=== PATIENT | female | born 1970 | race Caucasian/White ===

== ENCOUNTER 2021-01-20 08:31 | Inpatient (IN) ==
[2021-01-20] MEDS: *HR* HYDROcodone/Acet 5/325 mg TABLET PO PRN ×2 (13:43→20:58)
[2021-01-20 13:56] LABS: Basophils # 0.1 K/mcL (0.0-0.2); Basophils % 0.8 %; Eosinophils # 0.1 K/mcL (0.0-0.6); Eosinophils % 1.7 %; Hematocrit 36.1 % (35.3-44.9); Hemoglobin 11.6 g/dL (11.5-15.4); Immature Granulocytes % 0.8 % (0-4); Lymphocytes # 1.3 K/mcL (0.6-4.6); Mean Corpuscular HGB Conc 32.1 g/dL (31.6-35.5); Mean Platelet Volume 8.1 fL (9.4-12.4); Monocytes # 0.5 K/mcL (0.0-1.3); Neutrophils # 5.8 K/mcL (1.6-8.9); Platelet Count 383 K/mcL (140-400); Red Blood Count 4.15 M/mcL (3.82-4.97); Red Cell Distribution Width 15.7 % (11.5-14.5); Segmented Neutrophils % 73.7 %; White Blood Count 7.8 K/mcL (4.3-11.1)
[2021-01-20 14:34] LABS: Alanine Aminotransferase 16 Units/L (7-52); Albumin 3.8 g/dL (3.5-5.7); Alkaline Phosphatase 93 Units/L (34-104); Aspartate Amino Transferase 12 Units/L (13-39); BUN/Creatinine Ratio 39 (6-26); Bilirubin,Total 0.3 mg/dL (0.3-1.0); Blood Urea Nitrogen 24 mg/dL (6-20); Calcium 9.6 mg/dL (8.6-10.3); Carbon Dioxide 28 mEq/L (23-29); Chloride 99 mEq/L (98-107); Globulin 3.8 g/dL (2.4-3.5); Glucose 126 mg/dL (70-105); Osmolality,Calculated 288 (280-300); Potassium 3.2 mEq/L (3.5-5.1); Sodium 136 mEq/L (136-145); Total Protein 7.6 g/dL (6.4-8.9); eGFR For African Americans > 60 (> 60); eGFR For Non-African Americans > 60 (> 60)
[2021-01-20] MEDS ORDERED: Potassium Chloride Elixir 20 MEQ/15 ML UDC PO ONE (14:44)
[2021-01-20] MEDS: *HR* Heparin 5,000 UNIT/ML VIAL SQ SCH (17:52)
[2021-01-20] MEDS: clonazePAM 0.5 MG TABLET PO SCH (20:58)
[2021-01-20] MEDS: Pregabalin 75 MG CAPSULE PO SCH (20:58)
[2021-01-21] MEDS: *HR* Heparin 5,000 UNIT/ML VIAL SQ SCH (05:37)
[2021-01-21] MEDS ORDERED: ceFAZolin 2,000 MG in 0.9 % Sodium Chloride 100 ML IVPB ONE (08:00)
[2021-01-21] MEDS: clonazePAM 0.5 MG TABLET PO SCH (08:08)
[2021-01-21] MEDS: Pregabalin 75 MG CAPSULE PO SCH ×3 (08:08→19:39)
[2021-01-21] MEDS: *HR* HYDROcodone/Acet 5/325 mg TABLET PO PRN ×2 (08:09→18:10)
[2021-01-21] MEDS ORDERED: Loratadine 10 MG TABLET PO SCH (09:00)
[2021-01-21] MEDS ORDERED: Losartan/HCTZ 50-12.5 TABLET PO SCH (09:00)
[2021-01-21] MEDS ORDERED: BuPROPion XL (24 HR) 150 MG TABLET PO SCH (09:00)
[2021-01-21] MEDS ORDERED: *HR* FentaNYL (PF) 100 MCG/2 ML VIAL ONE (10:11)
[2021-01-21] MEDS ORDERED: Ondansetron 4 MG/2 ML VIAL ONE (10:11)
[2021-01-21] MEDS ORDERED: *HR* Succinylcholine 200 MG/10 ML VIAL IVP ONE (10:11)
[2021-01-21] MEDS ORDERED: *HR* Propofol 200 MG/20 ML VIAL IVP ONE ×2 (10:11→10:16)
[2021-01-21] MEDS ORDERED: Lidocaine -MPF 2% 5 ML VIAL ONE (10:11)
[2021-01-21] MEDS ORDERED: Vancomycin 1,000 MG VIAL ONE (11:20)
[2021-01-21] MEDS ORDERED: Lidocaine HCL 4 ML Topical Solution (Laryng-O-Jet Kit Sterile Pak) TP ONE (11:25)
[2021-01-21] MEDS ORDERED: Ondansetron 4 MG/2 ML VIAL IVP PRN ×3 (12:11→14:50)
[2021-01-21] MEDS ORDERED: *HR* HYDROmorphone PF 0.5 MG/0.5 ML SYRINGE IVP PRN (12:11)
[2021-01-21] MEDS ORDERED: Ketorolac 30 MG/ML VIAL ONE (12:33)
[2021-01-21] MEDS ORDERED: *HR* HYDROMORPHONE 2 MG/ML VIAL ONE (12:38)
[2021-01-21] MEDS ORDERED: *HR* OxyCODONE Immed Rel 5 MG TABLET PO PRN (14:45)
[2021-01-21] MEDS ORDERED: Acetaminophen 325 MG TABLET PO PRN (14:50)
[2021-01-21] MEDS ORDERED: Naloxone 0.4 MG/ML INJ IVP PRN (14:50)
[2021-01-21] MEDS: CeFAZolin 2 GM/120 ML BAG IVPB SCH ×2 (19:11→23:51)
[2021-01-21] MEDS: *HR* OxyCODONE Immed Rel 5 MG TABLET PO PRN (21:33)
[2021-01-22] MEDS: *HR* OxyCODONE Immed Rel 5 MG TABLET PO PRN (02:49)
[2021-01-22 07:59] VITALS: BP 124/76; PULSE 64; TEMP 97.7; O2SAT 99
[2021-01-22] MEDS: Pregabalin 75 MG CAPSULE PO SCH (08:46)
[2021-01-22] MEDS: *HR* HYDROcodone/Acet 5/325 mg TABLET PO PRN (08:50)
[2021-01-22] MEDS ORDERED: BuPROPion XL (24 HR) 150 MG TABLET PO SCH (09:00)
[2021-01-22] MEDS ORDERED: FLU Vac QV 21-22 (6Month+)/PF 0.5 ML SYRINGE IM ONE (09:32)
[2021-01-25] MEDS ORDERED: Cholecalciferol (D-3) 1,000 UNIT (25MCG) TABLET PO SCH (09:00)
== END 2021-01-22 10:18 | disposition home or self-care (01) | DRG 857 ==
LOC: 4WAOSI
PROVIDERS: ADMIT Orthopaedic Surgery Orthopaedic Surgery of the Spine; ATTEND Orthopaedic Surgery Orthopaedic Surgery of the Spine

== ENCOUNTER 2021-04-27 08:39 | Observation (INO) ==
[2021-04-27 13:24] LABS: Basophils # 0.1 K/mcL (0.0-0.2); Basophils % 0.8 %; Eosinophils # 0.2 K/mcL (0.0-0.6); Eosinophils % 3.1 %; Hematocrit 37.6 % (35.3-44.9); Hemoglobin 11.9 g/dL (11.5-15.4); Immature Granulocytes % 0.7 % (0-4); Lymphocytes # 1.5 K/mcL (0.6-4.6); Mean Corpuscular HGB Conc 31.6 g/dL (31.6-35.5); Mean Corpuscular Hemoglobin 28.1 pg (28.0-33.3); Mean Corpuscular Volume 88.9 fL (83.0-100.0); Monocytes # 0.5 K/mcL (0.0-1.3); Neutrophils # 5.2 K/mcL (1.6-8.9); Platelet Count 345 K/mcL (140-400); Red Blood Count 4.23 M/mcL (3.82-4.97); Red Cell Distribution Width 14.6 % (11.5-14.5); Segmented Neutrophils % 69.4 %; White Blood Count 7.5 K/mcL (4.3-11.1)
[2021-04-27 13:28] LABS: INR 1.1; Prothrombin Time 11.9 Seconds (9.4-12.1)
[2021-04-27 13:31] LABS: Activated Partial Thrombo Time 33.1 Seconds (26.0-36.0)
[2021-04-27 13:44] LABS: BUN/Creatinine Ratio 18 (6-26); Blood Urea Nitrogen 13 mg/dL (6-20); C-Reactive Protein 33 mg/L (Less than 10); Carbon Dioxide 25 mEq/L (23-29); Chloride 104 mEq/L (98-107); Potassium 3.7 mEq/L (3.5-5.1); Sodium 137 mEq/L (136-145); eGFR For African Americans > 60 (> 60); eGFR For Non-African Americans > 60 (> 60)
[2021-04-27 14:34] LABS: Glucose 78 mg/dL (70-105); Osmolality,Calculated 283 (280-300)
[2021-04-27] MEDS ORDERED: *HR* FentaNYL (PF) 100 MCG/2 ML VIAL IVP PRN (15:30)
[2021-04-27] MEDS ORDERED: *HR* HYDROmorphone PF 0.5 MG/0.5 ML SYRINGE IVP PRN (15:30)
[2021-04-27] MEDS ORDERED: Ondansetron 4 MG/2 ML VIAL IVP PRN (15:30)
[2021-04-27] MEDS: clonazePAM 0.5 MG TABLET PO SCH (20:42)
[2021-04-27] MEDS: *HR* HYDROcodone/Acet 5/325 mg TABLET PO PRN (20:43)
[2021-04-28] MEDS: *HR* HYDROcodone/Acet 5/325 mg TABLET PO PRN ×3 (03:54→23:43)
[2021-04-28] MEDS ORDERED: Famotidine 20 MG TABLET PO ONE (08:00)
[2021-04-28] MEDS: clonazePAM 0.5 MG TABLET PO SCH (08:54)
[2021-04-28] MEDS ORDERED: Losartan/HCTZ 50-12.5 TABLET PO SCH (09:00)
[2021-04-28] MEDS ORDERED: Loratadine 10 MG TABLET PO SCH (09:00)
[2021-04-28] MEDS ORDERED: BuPROPion XL (24 HR) 150 MG TABLET PO SCH (09:00)
[2021-04-28] MEDS ORDERED: Lidocaine -MPF 2% 5 ML VIAL ONE (09:06)
[2021-04-28] MEDS ORDERED: *HR* Propofol 200 MG/20 ML VIAL IVP ONE (09:06)
[2021-04-28] MEDS ORDERED: *HR* FentaNYL (PF) 100 MCG/2 ML VIAL ONE (09:06)
[2021-04-28] MEDS ORDERED: *HR* Succinylcholine 200 MG/10 ML VIAL IVP ONE (09:06)
[2021-04-28] MEDS ORDERED: CeFAZolin Syr 2,000MG/20 ML 2,000 MG/20 ML SYRINGE IVPB ONE (09:39)
[2021-04-28] MEDS ORDERED: Ringers Solution, Lactated 1,000 ML IVC SCH ×2 (09:45→13:48)
[2021-04-28] MEDS ORDERED: Lidocaine HCL 4 ML Topical Solution (Laryng-O-Jet Kit Sterile Pak) TP ONE (09:50)
[2021-04-28] MEDS ORDERED: *HR* OxyCODONE Immed Rel 5 MG TABLET PO PRN ×2 (09:55→13:48)
[2021-04-28] MEDS ORDERED: Ondansetron 4 MG/2 ML VIAL IVP PRN ×2 (09:55→13:48)
[2021-04-28] MEDS ORDERED: *HR* Labetalol 20 MG/4 ML SYRINGE IVP PRN (09:55)
[2021-04-28] MEDS ORDERED: Albuterol 2.5 MG/3 ML NEBULIZER IH PRN (09:55)
[2021-04-28] MEDS ORDERED: Promethazine 6.25 MG in Water for inj. (sterile) 20 ML IVPB PRN (09:55)
[2021-04-28] MEDS ORDERED: *HR* HYDROmorphone PF 0.5 MG/0.5 ML SYRINGE IVP PRN (09:55)
[2021-04-28] MEDS ORDERED: Polymyxin B Sulfate 500,000 UNIT, Sodium Chloride IRRigation 1,000 ML IR ONE (10:00)
[2021-04-28] MEDS ORDERED: Vancomycin 1,000 MG VIAL ONE ×2 (10:18→11:05)
[2021-04-28] MEDS ORDERED: Ondansetron 4 MG/2 ML VIAL ONE (10:46)
[2021-04-28] MEDS ORDERED: *HR* HYDROMORPHONE 2 MG/ML VIAL ONE (11:08)
[2021-04-28] MEDS ORDERED: *HR* Rocuronium Bromide 50 MG/5 ML VIAL ONE (11:14)
[2021-04-28] MEDS ORDERED: Sugammadex Sodium 200 MG/2 ML VIAL IV ONE (11:14)
[2021-04-28] MEDS ORDERED: Naloxone 0.4 MG/ML INJ IVP PRN (13:48)
[2021-04-28] MEDS ORDERED: Acetaminophen 325 MG TABLET PO PRN (13:48)
[2021-04-28] MEDS: CeFAZolin 2 GM/120 ML BAG IVPB SCH (19:31)
[2021-04-29] MEDS: CeFAZolin 2 GM/120 ML BAG IVPB SCH (03:42)
[2021-04-29 03:48] VITALS: TEMP 97.4
[2021-04-29 05:59] LABS: Basophils % 0.3 %; Eosinophils % 0.3 %; Hematocrit 34.8 % (35.3-44.9); Immature Granulocytes % 0.5 % (0-4); Lymphocytes # 1.1 K/mcL (0.6-4.6); Mean Corpuscular HGB Conc 31.6 g/dL (31.6-35.5); Mean Corpuscular Volume 88.5 fL (83.0-100.0); Mean Platelet Volume 8.3 fL (9.4-12.4); Monocytes # 0.8 K/mcL (0.0-1.3); Monocytes % 7.5 %; Neutrophils # 9.1 K/mcL (1.6-8.9); Platelet Count 330 K/mcL (140-400); Red Blood Count 3.93 M/mcL (3.82-4.97); Red Cell Distribution Width 14.3 % (11.5-14.5); Segmented Neutrophils % 81.4 %; White Blood Count 11.1 K/mcL (4.3-11.1)
[2021-04-29 07:00] VITALS: BP 123/83; PULSE 77; O2SAT 100
[2021-04-29] MEDS: *HR* HYDROcodone/Acet 5/325 mg TABLET PO PRN (07:17)
[2021-04-29] MEDS ORDERED: Polymyxin B Sulfate 500,000 UNIT, Sodium Chloride IRRigation 1,000 ML IR ONE (07:45)
[2021-05-03] MEDS ORDERED: Cholecalciferol (D-3) 1,000 UNIT (25MCG) TABLET PO SCH (12:25)
== END 2021-04-29 11:39 | disposition home or self-care (01) ==
LOC: 4WAOSI → SUATTDRO 08:53
PROVIDERS: ADMIT Orthopaedic Surgery Orthopaedic Surgery of the Spine; ATTEND Internal Medicine